=== PATIENT | male | born 1995 | race Caucasian/White ===

== ENCOUNTER 2024-06-28 09:30 | Emergency (ER) | payer BC, OTHER ==
[2024-06-28] MEDS ORDERED: Sodium Chloride 0.9% 10 ML Syringe FLUSH PRN (09:38)
[2024-06-28] MEDS: Aspirin 81 MG Tab.Chew PO ONE (09:41)
[2024-06-28] MEDS: Nitroglycerin 0.4 MG Tab.SL SL PRN (09:42)
[2024-06-28 10:17] LABS: B-TYPE NATRIURETIC PEPTIDE,BNP < 5 pg/mL (0-100)
[2024-06-28] MEDS ORDERED: Naloxone 0.4 MG/ML SDV IVPUSH PRN ×2 (10:18→10:54)
[2024-06-28 10:21] LABS: ALANINE AMINOTRANSFERASE,ALT 54 U/L (14-63); ALBUMIN 3.58 g/dL (3.40-5.00); ALKALINE PHOSPHATASE 70 U/L (46-116); ASPARTATE AMNIOTRANSFERASE,AST 14 U/L (15-37); BILIRUBIN TOTAL 0.8 mg/dL (0.2-1.0); BLOOD UREA NITROGEN,BUN 10 mg/dL (7-18); CALCIUM 8.2 mg/dL (8.7-10.3); CARBON DIOXIDE,CO2 25.9 mmol/L (21.0-32.0); CHLORIDE,CL 101 mmol/L (98-107); CREATININE 0.97 mg/dL (0.51-1.17); GLUCOSE RANDOM 234 mg/dL (70-140); LIPASE 34 U/L (16-77); POTASSIUM,K 3.9 mmol/L (3.5-5.1); SODIUM,NA 136 mmol/L (136-145)
[2024-06-28] MEDS: Tenecteplase 50 MG Kit IVPUSH ONE (10:21)
[2024-06-28 10:22] LABS: ESTIMATED GFR 108 mL/min (>=60)
[2024-06-28] MEDS: Morphine 2 MG/ML SYRINGE IVPUSH ONE ×2 (10:25→10:39)
[2024-06-28] MEDS: Tenecteplase 50 MG Kit ONE (10:31)
[2024-06-28] MEDS: Heparin Sodium/D5W 250 ML IV SCH ×2 (10:42→10:51)
[2024-06-28] MEDS: Heparin Sodium 5,000 Units/ML Vial IVPUSH ONE (10:42)
[2024-06-28 10:44] LABS: BASOPHILS ABSOLUTE AUTO 0.01 10^3/uL (0.00-0.10); BASOPHILS PERCENT AUTO 0.1 % (0.0-1.0); EOSINOPHILS ABSOLUTE AUTO 0.05 10^3/uL (0.10-0.30); EOSINOPHILS PERCENT AUTO 0.4 % (1.0-3.0); HEMATOCRIT 44.9 % (40.0-52.0); HEMOGLOBIN 15.6 g/dL (13.0-17.0); IMMATURE GRAN ABSOLUTE AUTO 0.03 10^3/uL (0.00-0.04); IMMATURE GRAN PERCENT AUTO 0.3 % (0.0-0.4); LYMPHOCYTES ABSOLUTE AUTO 3.71 10^3/uL (1.00-4.00); MEAN CORPUSCULAR HEMOGLOBIN 28.5 pg (27.0-31.0); MEAN CORPUSCULAR HGB CONC 34.7 g/dL (32.0-36.0); MEAN CORPUSCULAR VOLUME 82.1 fL (82.0-92.0); MEAN PLATELET VOLUME 9.8 fL (7.4-10.4); MONOCYTES ABSOLUTE AUTO 0.55 10^3/uL (0.10-0.80); MONOCYTES PERCENT AUTO 4.6 % (2.0-8.0); NEUTROPHILS PERCENT AUTO 63.6 % (50.0-70.0); PLATELET COUNT,PLT 191 10^3/uL (150-400); RED BLOOD CELL COUNT 5.47 10^6/uL (4.50-6.00); RED CELL DISTRIBUTION WIDTH 12.4 % (11.5-14.5); WHITE BLOOD CELL COUNT,WBC 11.95 10^3/uL (5.00-10.00)
[2024-06-28] MEDS: HYDROmorphone 1 MG/ML Syringe IVPUSH ONE (10:56)
[2024-06-28] MEDS: Clopidogrel 75 MG Tab PO ONE (11:01)
[2024-06-28 11:56] VITALS: BP 116/58; PULSE 94
== END 2024-06-28 11:30 ==
LOC: KA.ED 09:30
DX: I49.8 Other specified cardiac arrhythmias (principal); E78.00 Pure hypercholesterolemia, unspecified; E11.9 Type 2 diabetes mellitus without complications; Z88.8 Allergy status to other drugs, medicaments and biological substances
CPT/HCPCS: 36415; 71045; 80053; 82465; 83690; 83880; 84484; 85025; 85379; 85730; 87428-QW; 96365; 96375; 99285-25; A9270-GY; J1171; J1644; J2270; J3101; J3490